=== PATIENT | female | born 2000 | race Caucasian/White ===

== ENCOUNTER 2025-03-07 04:42 | Inpatient (IN) | payer BC ==
[2025-03-07] MEDS ORDERED: Sodium Chloride 0.9% 10 ML Syringe FLUSH PRN (08:13)
[2025-03-07] MEDS ORDERED: Butorphanol 1 MG/ML SDV IVPUSH PRN (08:13)
[2025-03-07] MEDS ORDERED: Carboprost Tromethamine 250 MCG/1 mL Vial IM PRN (08:13)
[2025-03-07] MEDS ORDERED: Water For Irrigation,Sterile 1,000 ML Container IRR PRN (08:13)
[2025-03-07] MEDS ORDERED: Ondansetron 4 MG/2 ML SDV IVPUSH PRN (08:13)
[2025-03-07] MEDS ORDERED: Sodium Chloride 0.9% 2.5 ML Syringe FLUSH PRN (08:13)
[2025-03-07] MEDS ORDERED: Misoprostol 25 MCG (1/4 of 100 MCG) Tab VAG PRN (08:16)
[2025-03-07] MEDS ORDERED: Terbutaline 1 MG/ML SDV SUBCUT PRN (08:16)
[2025-03-07] MEDS ORDERED: ePHEDrine 50 MG/ML SDV IVPUSH PRN (08:17)
[2025-03-07 08:20] LABS: MEAN PLATELET VOLUME 11.5 fL (9.4-12.3); NRBC ABSOLUTE 0.00 K/uL (0.00-0.02); NRBC PERCENT 0.0 /100WBC (0.0-0.2); PLATELET COUNT,PLT 188 K/uL (150-400); RED BLOOD CELL COUNT 4.02 M/uL (4.10-5.30); WHITE BLOOD CELL COUNT,WBC 10.94 K/uL (3.9-11.3)
[2025-03-07] MEDS ORDERED: Ropivacaine HCl/PF 400 MG in Premix Bag 1 BAG EPIDUR SCH (08:30)
[2025-03-07] MEDS ORDERED: dexmedeTOMIDine HCl 200 MCG/2 ML SDV EPIDUR SCH (08:30)
[2025-03-07] MEDS: Oxytocin/0.9 % Sodium Chloride 30 UNIT/500 ML BAG IV SCH ×2 (12:09→18:34)
[2025-03-07] MEDS: Lactated Ringers 1,000 ML IV SCH (12:09)
[2025-03-07] MEDS: Benzocaine/Menthol 20%-0.5% Spray 78 GM Cannister TOP PRN (21:38)
[2025-03-07] MEDS: Lanolin 100% Cream 7 GM Tube TOP PRN (21:38)
[2025-03-07] MEDS: Witch Hazel Medicated Pads 40/Jar TOP PRN (21:39)
== END 2025-03-08 21:55 | disposition home or self-care (01) | DRG 560 ==
LOC: MW.OBCHECK 04:42 → MW.OB 04:44 → MW.OBCHECK 08:19 → MW.OB 08:20 → OBSVTOIN 18:57 → MW.OB 22:47
PROVIDERS: ADMIT Obstetrics & Gynecology Gynecology; ATTEND Obstetrics & Gynecology Gynecology
PROC: 10E0XZZ Delivery of Products of Conception, External Approach (ICD-10-PCS; principal; 2025-03-07)
PROC: 0KQM0ZZ Repair Perineum Muscle, Open Approach (ICD-10-PCS; 2025-03-07)
PROC: 3E0R3BZ Introduction of Anesthetic Agent into Spinal Canal, Percutaneous Approach (ICD-10-PCS; 2025-03-07)
PROC: 00HU33Z Insertion of Infusion Device into Spinal Canal, Percutaneous Approach (ICD-10-PCS; 2025-03-07)
DX: O42.02 Full-term premature rupture of membranes, onset of labor within 24 hours of rupture (principal); Z37.0 Single live birth; O66.8 Other specified obstructed labor; O70.1 Second degree perineal laceration during delivery; Z3A.38 38 weeks gestation of pregnancy
CPT/HCPCS: 01967; 36415; 51702; 59025; 59409; 84112; 85014; 85018; 85027; 86592; 86850; 86900; 86901; A9270-GY; J2003; J2371; J2590; J2795; J7120